=== PATIENT | male | born 1940 | race Caucasian/White ===

== ENCOUNTER 2020-05-26 13:39 | Emergency (ER) | payer MEDICARE ==
[~2020-05-26] VITALS: Ht 182.9 cm; Wt 64.5 kg
[2020-05-26 13:44] VITALS: BP 115/66
[2020-05-26 14:36] LABS: BASOPHILS % (AUTO) 0.1 % (0-1); EOSINOPHILS % (AUTO) 0 % (0-6); HEMATOCRIT 35.9 % (42.0-52.0); HEMOGLOBIN 11.9 g/dl (14.0-17.9); LYMPHOCYTES # (AUTO) 0.2 X10'3 (1.1-4.8); LYMPHOCYTES % (AUTO) 2.5 % (21-51); MEAN CORPUSCULAR HEMOGLOBIN 28.8 PG (27.0-31.0); MEAN CORPUSCULAR HGB CONC 33.2 g/dL (33.0-36.5); MEAN CORPUSCULAR VOLUME 86.7 FL (78-98); MEAN PLATELET VOLUME 8.5 FL (7.4-10.4); MONOCYTES # (AUTO) 0.8 X10'3 (0-0.9); MONOCYTES % (AUTO) 9.8 % (2-12); NEUTROPHILS % (AUTO) 87.6 % (42-75); PLATELET COUNT 172 X10'3 (140-440); RED BLOOD COUNT 4.14 X10'6 (4.70-6.10); RED CELL DISTRIBUTION WIDTH 15.1 % (11.5-14.5)
[2020-05-26 14:47] LABS: ALANINE AMINOTRANSFERASE 14 U/L (12-78); ALBUMIN 3.3 G/DL (3.4-5.0); ALBUMIN/GLOBULIN RATIO 0.9 (1.1-1.5); ALKALINE PHOSPHATASE 53 IU/L (46-116); ANION GAP 12 (8-16); ASPARTATE AMINO TRANSFERASE 14 U/L (10-37); BILIRUBIN,TOTAL 0.8 MG/DL (0.1-1.0); BLOOD UREA NITROGEN 18 MG/DL (7-18); BUN/CREATININE RATIO 16.1 (5.4-32.0); CHLORIDE 106 MMOL/L (99-107); CREATININE 1.12 MG/DL (0.60-1.10); GLUCOSE 148 MG/DL (70-104); LIPASE 92 U/L (73-393); POTASSIUM 3.6 MMOL/L (3.5-5.1); SODIUM 141 MMOL/L (135-145); TOTAL CARBON DIOXIDE 22.7 MMOL/L (24-32); TOTAL PROTEIN 6.9 G/DL (6.4-8.2); eGFR 63 ML/MIN
== END 2020-05-26 15:11 | disposition home or self-care (01) ==
LOC: ER 13:40
DX: R10.9 Unspecified abdominal pain (principal); R11.2 Nausea with vomiting, unspecified; R50.9 Fever, unspecified; I25.2 Old myocardial infarction
CPT/HCPCS: 36415; 80053; 83690; 85025; 99283

== ENCOUNTER 2020-05-29 11:27 | Emergency (ER) | payer MEDICARE ==
[~2020-05-29] VITALS: Ht 185.4 cm; Wt 65.0 kg
[2020-05-29] MEDS ORDERED: normal saline 1000ML IV soln IV ONE (13:35)
[2020-05-29 13:56] LABS: CLARITY,URINE CLEAR (Clear); GLUCOSE, URINE NEGATIVE (Neg); KETONES,URINE >=80 mg/dl (Neg); LEUKOCYTE ESTERASE ,URINE NEGATIVE (Neg); NITRITES, URINE NEGATIVE (Neg); OCCULT BLOOD,URINE NEGATIVE (Neg); PROTEIN,URINE 100 mg/dl (Neg)
[2020-05-29 13:57] LABS: COLOR,URINE DARK YELLOW (Yellow); UA COLLECTION TYPE CLN CATCH MIDSTREAM
[2020-05-29 14:05] LABS: AMORPHOUS URATES 1+; BACTERIA,URINE NONE SEEN /HPF (Neg); MUCUS STRANDS MANY /LPF (Neg); RBC,URINE NONE SEEN /HPF (0-2); SQUAMOUS EPITHELIAL CELL,UR FEW /LPF (FEW); WBC,URINE 0-4 /HPF (0-4)
[2020-05-29 14:52] LABS: BASOPHILS % (AUTO) 0.4 % (0-1); EOSINOPHILS % (AUTO) 0.1 % (0-6); HEMATOCRIT 32.1 % (42.0-52.0); HEMOGLOBIN 10.7 g/dl (14.0-17.9); LYMPHOCYTES # (AUTO) 0.6 X10'3 (1.1-4.8); LYMPHOCYTES % (AUTO) 7.1 % (21-51); MEAN CORPUSCULAR HEMOGLOBIN 28.7 PG (27.0-31.0); MEAN CORPUSCULAR HGB CONC 33.5 g/dL (33.0-36.5); MEAN CORPUSCULAR VOLUME 85.6 FL (78-98); MEAN PLATELET VOLUME 8.1 FL (7.4-10.4); MONOCYTES # (AUTO) 0.7 X10'3 (0-0.9); MONOCYTES % (AUTO) 8.5 % (2-12); NEUTROPHILS # (AUTO) 6.8 X10'3 (1.8-7.7); NEUTROPHILS % (AUTO) 83.9 % (42-75); PLATELET COUNT 202 X10'3 (140-440); RED BLOOD COUNT 3.75 X10'6 (4.70-6.10); RED CELL DISTRIBUTION WIDTH 15.1 % (11.5-14.5); WHITE BLOOD COUNT 8.1 X10'3 (4.5-11.0)
[2020-05-29 15:06] LABS: PARTIAL THROMBOPLASTIN TIME 36 SECONDS (22-32)
--- NOTE | 2020-05-29 15:06 | NUR ---
To CT scan via gurney with the side rails raised.
[2020-05-29 15:14] LABS: ALANINE AMINOTRANSFERASE 20 U/L (12-78); ALBUMIN 2.8 G/DL (3.4-5.0); ALBUMIN/GLOBULIN RATIO 0.7 (1.1-1.5); ALKALINE PHOSPHATASE 66 IU/L (46-116); ANION GAP 10 (8-16); ASPARTATE AMINO TRANSFERASE 23 U/L (10-37); BILIRUBIN,TOTAL 0.6 MG/DL (0.1-1.0); BLOOD UREA NITROGEN 18 MG/DL (7-18); BUN/CREATININE RATIO 16.7 (5.4-32.0); CHLORIDE 102 MMOL/L (99-107); CREATININE 1.08 MG/DL (0.60-1.10); GLUCOSE 107 MG/DL (70-104); LIPASE 90 U/L (73-393); POTASSIUM 3.9 MMOL/L (3.5-5.1); SODIUM 136 MMOL/L (135-145); TOTAL PROTEIN 6.8 G/DL (6.4-8.2); eGFR 66 ML/MIN
[2020-05-29 15:20] LABS: CALCIUM 8.9 MG/DL (8.5-10.1)
[2020-05-29] MEDS ORDERED: PANT20TA3 PO (16:52)
[2020-05-29 18:05] VITALS: BP 129/65
== END 2020-05-29 17:45 | disposition home or self-care (01) ==
LOC: ER 11:27
DX: R10.9 Unspecified abdominal pain (principal); R11.2 Nausea with vomiting, unspecified; R07.9 Chest pain, unspecified; I25.2 Old myocardial infarction; Z87.442 Personal history of urinary calculi
CPT/HCPCS: 36415; 71045; 74176; 80053; 81001; 83605; 83690; 84145; 85025; 85610; 85730; 87040; 96360; 99285; J7030

== ENCOUNTER 2021-07-23 19:05 | Inpatient (IN) | payer OTHER, BC ==
[~2021-07-23] VITALS: Ht 157.5 cm; Wt 62.0 kg
[~2021-07-23 19:05] MED LIST: PANT20TA18 PO
[2021-07-23 19:48] LABS: BASOPHILS % (AUTO) 0.4 % (0-1); EOSINOPHILS % (AUTO) 0 % (0-6); HEMOGLOBIN 11.9 g/dl (14.0-17.9); LYMPHOCYTES # (AUTO) 0.3 X10'3 (1.1-4.8); LYMPHOCYTES % (AUTO) 14.2 % (21-51); MEAN CORPUSCULAR HEMOGLOBIN 26.8 PG (27.0-31.0); MEAN CORPUSCULAR VOLUME 78.9 FL (78-98); MEAN PLATELET VOLUME 8.1 FL (7.4-10.4); MONOCYTES # (AUTO) 0.2 X10'3 (0-0.9); MONOCYTES % (AUTO) 10.5 % (2-12); NEUTROPHILS # (AUTO) 1.7 X10'3 (1.8-7.7); NEUTROPHILS % (AUTO) 74.9 % (42-75); PLATELET COUNT 117 X10'3 (140-440); RED BLOOD COUNT 4.44 X10'6 (4.70-6.10); RED CELL DISTRIBUTION WIDTH 19.7 % (11.5-14.5); WHITE BLOOD COUNT 2.3 X10'3 (4.5-11.0)
[2021-07-23 19:58] LABS: ALANINE AMINOTRANSFERASE 21 U/L (12-78); ALBUMIN 2.8 G/DL (3.4-5.0); ALBUMIN/GLOBULIN RATIO 0.8 (1.1-1.5); ALKALINE PHOSPHATASE 52 IU/L (46-116); ANION GAP 6 (8-16); ASPARTATE AMINO TRANSFERASE 29 U/L (10-37); BILIRUBIN,TOTAL 0.6 MG/DL (0.1-1.0); BLOOD UREA NITROGEN 15 MG/DL (7-18); CALCIUM 7.7 MG/DL (8.5-10.1); CHLORIDE 86 MMOL/L (99-107); GLUCOSE 127 MG/DL (70-104); POTASSIUM 3.9 MMOL/L (3.5-5.1); TOTAL CARBON DIOXIDE 25.1 MMOL/L (24-32); TOTAL PROTEIN 6.4 G/DL (6.4-8.2); eGFR 72 ML/MIN
[2021-07-23 20:00] LABS: SODIUM 117 MMOL/L (135-145)
[2021-07-23] MEDS ORDERED: normal saline 1000ML IV soln IVB ONE (20:15)
[2021-07-23 20:46] LABS: PLATELET ESTIMATE DECREASED
[2021-07-23 20:47] LABS: ANISOCYTOSIS 2+; MICROCYTOSIS 1+
[2021-07-23 21:52] LABS: CLARITY,URINE CLEAR (Clear); COLOR,URINE YELLOW (Yellow); GLUCOSE, URINE NEGATIVE (Neg); KETONES,URINE 15 mg/dl (Neg); LEUKOCYTE ESTERASE ,URINE NEGATIVE (Neg); NITRITES, URINE NEGATIVE (Neg); OCCULT BLOOD,URINE NEGATIVE (Neg); PROTEIN,URINE TRACE mg/dl (Neg); UROBILINOGEN,URINE 0.2 E.U/dL (0.2-1.0)
[2021-07-23] MEDS ORDERED: potassium Cl 20 mEq SR tablet PO PRN ×2 (22:15)
[2021-07-23] MEDS ORDERED: acetaminophen 325mg tablet PO PRN (22:15)
[2021-07-23] MEDS ORDERED: ondansetron/PF 4mg/2ml inj IV PRN (22:15)
[2021-07-23] MEDS ORDERED: magnesium 2GM in 50ml NS 50 ML IV PRN (22:15)
[2021-07-23] MEDS ORDERED: potassium Cl 40MEQ/1/2NS 520ml 520 ML IV PRN ×2 (22:15)
[2021-07-23] MEDS ORDERED: docusate sod 100mg capsule PO PRN (22:15)
[2021-07-23] MEDS ORDERED: magnesium 4gm in 100ml NS 100 ML IV PRN (22:15)
[2021-07-23] MEDS ORDERED: mag hydrox/Alum hydrox/simeth 30ml oral suspension PO PRN (22:15)
[2021-07-23 22:20] LABS: UA COLLECTION TYPE VOIDED
[2021-07-23 22:22] LABS: BACTERIA,URINE NONE SEEN /HPF (Neg); RBC,URINE NONE SEEN /HPF (0-2); WBC,URINE 0-4 /HPF (0-4)
[2021-07-23 22:23] LABS: SQUAMOUS EPITHELIAL CELL,UR NONE SEEN /LPF (FEW)
[2021-07-23 22:51] LABS: ETHANOL < 0.010 GM/DL (0.0-0.010)
[2021-07-24] MEDS: normal saline 1000ml 1,000 ML IV SCH ×3 (00:01→20:00)
[2021-07-24 03:52] LABS: BASOPHILS % (AUTO) 0.4 % (0-1); EOSINOPHILS % (AUTO) 0 % (0-6); HEMATOCRIT 34.8 % (42.0-52.0); HEMOGLOBIN 11.8 g/dl (14.0-17.9); LYMPHOCYTES # (AUTO) 0.5 X10'3 (1.1-4.8); LYMPHOCYTES % (AUTO) 19.2 % (21-51); MEAN CORPUSCULAR HEMOGLOBIN 26.9 PG (27.0-31.0); MEAN CORPUSCULAR HGB CONC 33.8 g/dL (33.0-36.5); MEAN CORPUSCULAR VOLUME 79.4 FL (78-98); MEAN PLATELET VOLUME 8.5 FL (7.4-10.4); MONOCYTES # (AUTO) 0.2 X10'3 (0-0.9); MONOCYTES % (AUTO) 9.6 % (2-12); NEUTROPHILS # (AUTO) 1.7 X10'3 (1.8-7.7); NEUTROPHILS % (AUTO) 70.8 % (42-75); PLATELET COUNT 107 X10'3 (140-440); RED BLOOD COUNT 4.39 X10'6 (4.70-6.10); RED CELL DISTRIBUTION WIDTH 19.4 % (11.5-14.5); WHITE BLOOD COUNT 2.4 X10'3 (4.5-11.0)
[2021-07-24 04:09] LABS: ALANINE AMINOTRANSFERASE 18 U/L (12-78); ALBUMIN 2.5 G/DL (3.4-5.0); ALBUMIN/GLOBULIN RATIO 0.7 (1.1-1.5); ALKALINE PHOSPHATASE 43 IU/L (46-116); ANION GAP 9 (8-16); ASPARTATE AMINO TRANSFERASE 28 U/L (10-37); BILIRUBIN,TOTAL 0.8 MG/DL (0.1-1.0); BLOOD UREA NITROGEN 11 MG/DL (7-18); CALCIUM 7.3 MG/DL (8.5-10.1); CHLORIDE 89 MMOL/L (99-107); CREATININE 0.92 MG/DL (0.60-1.10); GLUCOSE 104 MG/DL (70-104); MAGNESIUM 1.7 MG/DL (1.5-2.4); POTASSIUM 3.9 MMOL/L (3.5-5.1); SODIUM 123 MMOL/L (135-145); TOTAL CARBON DIOXIDE 24.7 MMOL/L (24-32); TOTAL PROTEIN 5.9 G/DL (6.4-8.2); eGFR 79 ML/MIN
[2021-07-24 04:45] LABS: TOTAL CELLS COUNTED 100
[2021-07-24 04:46] LABS: BANDS% (MANUAL) 5 % (0-10); LYMPHOCYTES % (MANUAL) 12 % (21-51); METAMYLEOCYTES% (MANUAL) 1 % (0-0); MONOCYTES % (MANUAL) 5 % (2-12); NEUTROPHILS % (MANUAL) 77 % (42-75)
[2021-07-24 04:47] LABS: ANISOCYTOSIS 2+; MICROCYTOSIS 1+; PLATELET ESTIMATE DECREASED
[2021-07-24] MEDS: K and/or MAG REPLACEMENT MC SCH ×2 (08:00→20:00)
--- NOTE | 2021-07-24 09:00 | NUR ---
Patient in room [facility]. I have received report from Nuvia SHIELDS RN and had the opportunity to ask questions and assume patient care.
[2021-07-24 09:09] VITALS: BP 110/65
[2021-07-24] MEDS ORDERED: proCHLORperazine 10 MG/2 ml inj IV PRN (11:35)
[2021-07-24 12:00] VITALS: BP 115/67
[2021-07-24] MEDS ORDERED: levoFLOXACIN 500mg tablet PO ONE (13:35)
[2021-07-24] MEDS: DEXAMETHASONE 6 MG TABLET PO SCH (13:59)
[2021-07-24] MEDS ORDERED: ASPI-611 PO (15:22)
[2021-07-24] MEDS ORDERED: LEVO50TA8 PO (15:22)
--- NOTE | 2021-07-24 18:12 | NUR ---
Patient in room [facility]. I have received report from Yesenia VILLEDA and had the opportunity to ask questions and assume patient care.
[2021-07-24 19:00] VITALS: BP 116/70
[2021-07-24] MEDS: enoxaparin 40mg/0.4ml syringe SQ SCH (20:00)
[2021-07-24 23:01] VITALS: BP 109/63
[2021-07-25] MEDS: normal saline 1000ml 1,000 ML IV SCH ×3 (04:35→21:44)
--- NOTE | 2021-07-25 06:23 | NUR ---
Problems reprioritized. Patient report given, questions answered & plan of care reviewed with Whitley VILLEDA.
--- NOTE | 2021-07-25 06:27 | NUR ---
Patient in room [facility] 341. I have received report from CHRISTIANA Peguero and had the opportunity to ask questions and assume patient care.
[2021-07-25 07:56] LABS: HEMATOCRIT 35.9 % (42.0-52.0); HEMOGLOBIN 12.5 g/dl (14.0-17.9); MEAN CORPUSCULAR HEMOGLOBIN 26.9 PG (27.0-31.0); MEAN CORPUSCULAR HGB CONC 34.9 g/dL (33.0-36.5); MEAN CORPUSCULAR VOLUME 76.9 FL (78-98); MEAN PLATELET VOLUME 8.7 FL (7.4-10.4); PLATELET COUNT 138 X10'3 (140-440); RED BLOOD COUNT 4.66 X10'6 (4.70-6.10); RED CELL DISTRIBUTION WIDTH 19.6 % (11.5-14.5); WHITE BLOOD COUNT 2.9 X10'3 (4.5-11.0)
[2021-07-25] MEDS: K and/or MAG REPLACEMENT MC SCH ×2 (08:00→19:35)
[2021-07-25 08:18] LABS: D-DIMER 0.35 MG/L FEU (0-0.50)
[2021-07-25 08:28] LABS: ALANINE AMINOTRANSFERASE 21 U/L (12-78); ALBUMIN 2.5 G/DL (3.4-5.0); ALBUMIN/GLOBULIN RATIO 0.7 (1.1-1.5); ALKALINE PHOSPHATASE 48 IU/L (46-116); ANION GAP 11 (8-16); ASPARTATE AMINO TRANSFERASE 28 U/L (10-37); BILIRUBIN,TOTAL 0.6 MG/DL (0.1-1.0); BLOOD UREA NITROGEN 12 MG/DL (7-18); BUN/CREATININE RATIO 12.5 (5.4-32.0); C-REACTIVE PROTEIN 5.55 MG/DL (0.0-0.5); CALCIUM 8.3 MG/DL (8.5-10.1); CHLORIDE 98 MMOL/L (99-107); CREATININE 0.96 MG/DL (0.60-1.10); GLUCOSE 133 MG/DL (70-104); MAGNESIUM 1.9 MG/DL (1.5-2.4); POTASSIUM 3.9 MMOL/L (3.5-5.1); SODIUM 131 MMOL/L (135-145); TOTAL CARBON DIOXIDE 22.3 MMOL/L (24-32); TOTAL PROTEIN 6.1 G/DL (6.4-8.2); eGFR 75 ML/MIN
[2021-07-25 08:29] VITALS: BP 119/70
[2021-07-25 08:30] LABS: ANISOCYTOSIS 2+; ELLIPTOCYTES 1+; MICROCYTOSIS 1+; PLATELET ESTIMATE DECREASED; TOTAL CELLS COUNTED 100
[2021-07-25] MEDS: levoTHYROXINE 25mcg tablet PO SCH (08:31)
[2021-07-25] MEDS: DEXAMETHASONE 6 MG TABLET PO SCH (08:31)
[2021-07-25] MEDS: aspirin 81mg, enteric-coated 1 TAB TABLET.DR PO SCH (08:32)
[2021-07-25] MEDS: levoFLOXACIN 500mg tablet PO SCH (11:43)
[2021-07-25 11:44] VITALS: BP 113/66
--- NOTE | 2021-07-25 14:42 | NUR ---
Malnutrition consult: Pt reports 24-33 lb wt loss with decreased appetite per malnutrition risk screen with RN. Current documented wt is stable with wt hx in EMR. Pt currently on a heart healthy diet documented with average 25% PO intake not meeting estimated nutrient needs. D/w RN recommendation for diet change to regular in hopes of improving PO intake with diet liberalization. Recommend Ensure Enlive TID, to be sent pending MD approval in EMR. Noted pt very nauseated per MD note, likely impacting appetite and PO intake. Pt receiving PRN anti-emetic. Pt with no significant decrease in muscle strength or edema. Pt likely had changes in appetite and PO intake r/t COVID PNA though currently lacks a minimum of two criteria for malnutrition. Noted LBM 07/17 with only PRN bowel care available. D/w RN recommendation for routine bowel care and d/w dietary to send prunes and prune juice with next meal for bowel regularity as constipation can also impact appetite. Will continue to follow closely. Addendum: 07/25/21 at [address] Amended: Links added.
--- NOTE | 2021-07-25 15:00 | NUR ---
Spoke to Nayely in infection control to make sure that Dr Kong is aware of this patient. Per Nayely he does not see every patient unless asked by the hospitalist. She will make sure he is aware.
--- NOTE | 2021-07-25 17:48 | NUR ---
PAGER ID: [phone] MESSAGE: [phone] Norma Cortés- pt has not had bm since 07/17. ok to order bowel regimen? also, pt c/o not being able to sleep. any new orderS? thank you- [phone]
[2021-07-25] MEDS: lactose-reduced food (Ensure Enlive) - 237ml bottle PO SCH (18:00)
--- NOTE | 2021-07-25 18:19 | NUR ---
Problems reprioritized. Patient report given, questions answered & plan of care reviewed with CHRISTIANA Barrientos.
--- NOTE | 2021-07-25 18:30 | NUR ---
Patient in room [facility] 341. I have received report from Whitley VILLEDA and had the opportunity to ask questions and assume patient care.
[2021-07-25 19:32] VITALS: BP 130/69
[2021-07-25] MEDS: enoxaparin 40mg/0.4ml syringe SQ SCH (20:00)
[2021-07-25] MEDS ORDERED: bisacodyl 10mg suppository rectal RC PRN (21:10)
[2021-07-25] MEDS: acetaminophen 325mg tablet PO PRN (21:45)
[2021-07-25 23:25] VITALS: BP 111/76
[2021-07-25] MEDS ORDERED: traMADol 50MG tablet PO ONE (23:45)
[2021-07-26] MEDS: guaiFENesin ER 600mg tablet PO SCH ×2 (00:08→08:32)
[2021-07-26 06:36] LABS: BASOPHILS % (AUTO) 0.1 % (0-1); EOSINOPHILS % (AUTO) 0 % (0-6); HEMATOCRIT 32.7 % (42.0-52.0); HEMOGLOBIN 11.2 g/dl (14.0-17.9); LYMPHOCYTES # (AUTO) 0.4 X10'3 (1.1-4.8); LYMPHOCYTES % (AUTO) 6.6 % (21-51); MEAN CORPUSCULAR HGB CONC 34.2 g/dL (33.0-36.5); MEAN CORPUSCULAR VOLUME 78.9 FL (78-98); MEAN PLATELET VOLUME 7.4 FL (7.4-10.4); MONOCYTES # (AUTO) 0.4 X10'3 (0-0.9); NEUTROPHILS # (AUTO) 4.6 X10'3 (1.8-7.7); NEUTROPHILS % (AUTO) 85.3 % (42-75); PLATELET COUNT 161 X10'3 (140-440); RED BLOOD COUNT 4.14 X10'6 (4.70-6.10); RED CELL DISTRIBUTION WIDTH 19.8 % (11.5-14.5); WHITE BLOOD COUNT 5.4 X10'3 (4.5-11.0)
[2021-07-26] MEDS: normal saline 1000ml 1,000 ML IV SCH (06:42)
--- NOTE | 2021-07-26 06:44 | NUR ---
Problems reprioritized. Patient report given, questions answered & plan of care reviewed with Whitley VILLEDA.
[2021-07-26 06:52] VITALS: BP 128/73
[2021-07-26 07:03] LABS: D-DIMER < 0.19 MG/L FEU (0-0.50)
[2021-07-26 07:09] LABS: ALANINE AMINOTRANSFERASE 16 U/L (12-78); ALBUMIN 2.3 G/DL (3.4-5.0); ALBUMIN/GLOBULIN RATIO 0.7 (1.1-1.5); ALKALINE PHOSPHATASE 45 IU/L (46-116); ANION GAP 6 (8-16); ASPARTATE AMINO TRANSFERASE 29 U/L (10-37); BILIRUBIN,TOTAL 0.5 MG/DL (0.1-1.0); BLOOD UREA NITROGEN 13 MG/DL (7-18); BUN/CREATININE RATIO 13.8 (5.4-32.0); C-REACTIVE PROTEIN 2.45 MG/DL (0.0-0.5); CALCIUM 7.9 MG/DL (8.5-10.1); CHLORIDE 103 MMOL/L (99-107); CREATININE 0.94 MG/DL (0.60-1.10); GLUCOSE 130 MG/DL (70-104); MAGNESIUM 1.9 MG/DL (1.5-2.4); POTASSIUM 4.2 MMOL/L (3.5-5.1); SODIUM 134 MMOL/L (135-145); TOTAL CARBON DIOXIDE 25.1 MMOL/L (24-32); TOTAL PROTEIN 5.4 G/DL (6.4-8.2); eGFR 77 ML/MIN
[2021-07-26] MEDS: K and/or MAG REPLACEMENT MC SCH (08:00)
[2021-07-26] MEDS: lactose-reduced food (Ensure Enlive) - 237ml bottle PO SCH ×2 (08:00→13:06)
[2021-07-26] MEDS: aspirin 81mg, enteric-coated 1 TAB TABLET.DR PO SCH (08:31)
[2021-07-26] MEDS: levoTHYROXINE 25mcg tablet PO SCH (08:32)
[2021-07-26] MEDS: acetaminophen 325mg tablet PO PRN (08:32)
[2021-07-26] MEDS: DEXAMETHASONE 6 MG TABLET PO SCH (08:32)
[2021-07-26] MEDS: levoFLOXACIN 500mg tablet PO SCH (10:30)
[2021-07-26 10:36] VITALS: BP 131/74
[2021-07-26] MEDS ORDERED: LEVO500T89 PO (11:30)
[2021-07-26] MEDS ORDERED: DEC4T PO (11:30)
--- NOTE | 2021-07-26 12:48 | NUR ---
Patient is alert and oriented with no complaints at this time. No s/s of apparent distress. Discussed with patient discharge instructions and new prescriptions. Patient verbalizes understanding of teaching and stated he had no questions. Patient assisted with dressing, shirt, jeans and socks. All other patient belongings placed in patient's belongings bag along with wallet and cellphone. Patient notified of patient's dc. Patient ready for dc and waiting for cab.
--- NOTE | 2021-07-26 13:33 | NUR ---
Patient was escorted out in wheelchair accompanied by MAGED Barker/refinery operator reforming unit. Patient dc'd home with all personal belongings via cab.
== END 2021-07-26 13:40 | disposition home health service (06) | DRG 177 ==
LOC: ER 19:05 → ED HOLD 22:30 → SUR 3N 07-24 08:15
PROVIDERS: ADMIT Family Medicine; ATTEND Family Medicine
DX: U07.1 COVID-19 (principal); J12.82 Pneumonia due to coronavirus disease 2019; E87.1 Hypo-osmolality and hyponatremia; E86.0 Dehydration; R11.0 Nausea; I25.2 Old myocardial infarction; Z82.49 Family history of ischemic heart disease and other diseases of the circulatory system; Z87.442 Personal history of urinary calculi; Z79.899 Other long term (current) drug therapy
CPT/HCPCS: 36415; 71045; 80053; 80320; 81001; 83735; 84145; 85007; 85008; 85025; 85379; 86140; 87081; 87635; 96372; 96374; 96375; 97110; 97161; 97530; 99285; C9803; G0378; J0780; J1650; J2405; J7030; J8540

== ENCOUNTER 2022-01-18 16:32 | Emergency (ER) | payer OTHER, BC ==
[~2022-01-18] VITALS: Ht 182.9 cm; Wt 62.0 kg
[~2022-01-18 16:32] MED LIST changes: +ASPI-611 PO; +LEVO50TA8 PO; -PANT20TA18 PO
[2022-01-18 17:46] LABS: BASOPHILS % (AUTO) 0.5 % (0-1); EOSINOPHILS # (AUTO) 0.1 X10'3 (0-0.9); EOSINOPHILS % (AUTO) 1.7 % (0-6); HEMATOCRIT 41.2 % (42.0-52.0); HEMOGLOBIN 13.8 g/dl (14.0-17.9); LYMPHOCYTES # (AUTO) 1.2 X10'3 (1.1-4.8); LYMPHOCYTES % (AUTO) 23.2 % (21-51); MEAN CORPUSCULAR HEMOGLOBIN 28.2 PG (27.0-31.0); MEAN CORPUSCULAR HGB CONC 33.5 g/dL (33.0-36.5); MEAN CORPUSCULAR VOLUME 84.3 FL (78-98); MEAN PLATELET VOLUME 8.8 FL (7.4-10.4); MONOCYTES # (AUTO) 0.4 X10'3 (0-0.9); MONOCYTES % (AUTO) 8.8 % (2-12); NEUTROPHILS # (AUTO) 3.3 X10'3 (1.8-7.7); NEUTROPHILS % (AUTO) 65.8 % (42-75); PLATELET COUNT 185 X10'3 (140-440); RED BLOOD COUNT 4.89 X10'6 (4.70-6.10); RED CELL DISTRIBUTION WIDTH 18.4 % (11.5-14.5)
[2022-01-18 17:52] LABS: ALANINE AMINOTRANSFERASE 21 U/L (12-78); ALBUMIN 3.9 G/DL (3.4-5.0); ALBUMIN/GLOBULIN RATIO 1.2 (1.1-1.5); ALKALINE PHOSPHATASE 45 IU/L (46-116); ANION GAP 13 (8-16); ASPARTATE AMINO TRANSFERASE 19 U/L (10-37); BILIRUBIN,TOTAL 0.5 MG/DL (0.1-1.0); BLOOD UREA NITROGEN 24 MG/DL (7-18); BUN/CREATININE RATIO 23.8 (5.4-32.0); CHLORIDE 104 MMOL/L (99-107); CREATININE 1.01 MG/DL (0.60-1.10); GLUCOSE 117 MG/DL (70-104); LIPASE 383 U/L (73-393); SODIUM 144 MMOL/L (135-145); TOTAL CARBON DIOXIDE 27.3 MMOL/L (24-32); TOTAL PROTEIN 7.2 G/DL (6.4-8.2); eGFR 71 ML/MIN
[2022-01-18 20:34] VITALS: BP 115/72
== END 2022-01-18 20:35 | disposition home or self-care (01) ==
LOC: ER 16:33
DX: R10.32 Left lower quadrant pain (principal); I25.2 Old myocardial infarction; Z87.442 Personal history of urinary calculi; Z79.82 Long term (current) use of aspirin; Z79.899 Other long term (current) drug therapy; Z95.5 Presence of coronary angioplasty implant and graft
CPT/HCPCS: 36415; 71250; 74176; 80053; 83690; 85025; 99284

== ENCOUNTER 2022-08-19 10:51 | Outpatient (CLI) | payer OTHER ==
[2022-08-19] MEDS ORDERED: BARIUM SULFATE 340 ML SUSP.RECON***PROCEDURE AREA ONLY**DONT ENTER PO ONE (11:45)
== END 2022-08-19 23:59 | disposition home or self-care (01) ==
LOC: RAD 10:51
PROVIDERS: ATTEND Student in an Organized Health Care Education/Training Program
DX: K21.9 Gastro-esophageal reflux disease without esophagitis (principal)
CPT/HCPCS: 74220